=== PATIENT | male | born 2000 | race Caucasian/White ===

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

== ENCOUNTER 2018-03-18 13:32 | Emergency (ER) | payer BC ==
[2018-03-18] MEDS: 0.9 % SODIUM CHLORIDE 1,000 ML BAG IV ONE ×2 (14:15→15:04)
[2018-03-18 14:24] LABS: HEMOGLOBIN 16.4 gm/dl (14.0-18.0); MEAN CELL VOLUME 85.8 fl (81-97); MEAN CORPUSCULAR HEMOGLOBIN 29.9 pg (27-33); MEAN CORPUSCULAR HGB CONC 34.9 g/dl (32-36); PLATELET COUNT 111 K/uL (130-400); RED BLOOD COUNT 5.48 M/uL (4.40-5.70); WHITE BLOOD COUNT W/O DIFF 14.1 K/uL (4.2-12.2)
--- NOTE | 2018-03-18 14:26 | Emergency Department Record ---
History of Present Illness - General Chief complaint: Vomiting Stated complaint: DEHYDRATED Time Seen by Provider: 03/18/18 14:09 Source: Patient, Family Mode of Arrival: Ambulatory Limitations: No limitations - History of Present Illness Initial comments: The patient is here due to a one day hx of weakness, lightheaded with standing and intermittent nausea with vomiting. He has been working outside in the extreme heat and thinks he has heat exhaustion. The patient denies any AP, OTTO, trauma or injury. MD complaint: Nausea, Vomiting Onset/Timin -: Days(s) Description of Vomiting: Watery Associated Abdominal Pain: Yes Location: Diffuse Severity: Mild Quality: Aching Consistency: Intermittent Improves with: None Worsens with: None Associated Symptoms: Nausea/vomiting - Related Data Home Medications Medication Instructions Recorded Confirmed Last Taken No Home Med [NO HOME MEDS] 03/18/18 03/18/18 Unknown Allergies Allergy/AdvReac Type Severity Reaction Status Date / Time sulfamethoxazole Allergy RASH Verified 03/18/18 14:00 [From Bactrim] trimethoprim [From Bactrim] Allergy RASH Verified 03/18/18 14:00 Travel Screening - Travel/Exposure Within Last 30 Days Have you traveled within the last 30 days?: No Review of Systems Constitutional: Denies: Chills, Fever Eyes: Denies: Eye discharge ENT: Denies: Congestion Respiratory: Denies: Cough, Dyspnea Past Medical History - SOCIAL HISTORY Smoking Status: Current every day smoker Alcohol Use: Occasional Drug Use: Heavy - RESPIRATORY Hx Respiratory Disorders: Yes Hx Pneumonia: Yes - CARDIOVASCULAR Hx Cardio Disorders: No - NEURO Hx Neuro Disorders: No - GI Hx GI Disorders: No - Hx Genitourinary Disorders: No - ENDOCRINE Hx Endocrine Disorders: No - MUSCULOSKELETAL Hx Musculoskeletal Disorders: No - PSYCH Hx Psych Problems: No - HEMATOLOGY/ONCOLOGY Hx Hematology/Oncology Disorders: No Family Medical History Any Significant Family History?: No Physical Exam - General General Appearance: Alert, Oriented x3, Cooperative, No acute distress - Head Head exam: Atraumatic, Normocephalic, Normal inspection - Eye Eye exam: Normal appearance, PERRL - ENT Throat exam: Normal inspection. negative: Tonsillar erythema, Tonsillar exudate - Neck Neck exam: Normal inspection, Full ROM. negative: Tenderness - Respiratory Respiratory exam: Normal lung sounds bilaterally. negative: Respiratory distress - Cardiovascular Cardiovascular Exam: Regular rate, Normal rhythm, Normal heart sounds - GI/Abdominal GI/Abdominal exam: Soft, Normal bowel sounds. negative: Rebound, Rigid, Tenderness - Extremities Extremities exam: Normal inspection, Full ROM, Normal capillary refill. negative: Tenderness - Neurological Neurological exam: Alert, Normal gait. negative: Abnormal gait, Motor sensory deficit Course Vital Signs 03/18/18 13:58 Temperature 97.3 F L Pulse Rate 93 H Respiratory 20 Rate Blood Pressure 105/47 Pulse Ox 100 - Reevaluation(s) Reevaluation #1: The patient is doing a lot better at this time. He is resting comfortably. 03/18/18 15:10 Reevaluation #2: The patient is doing a lot better at this time. He is up walking and taking in fluids with no problems. I did discuss the plan for home and the need for return if the symptoms worsen. 03/18/18 16:41 Medical Decision Making - Data Complexity MDM Data: Labs Ordered and/or Reviewed - Lab Data Result diagrams: 03/18/18 14:05 03/18/18 14:05 Disposition Disposition: Discharge Clinical Impression: Dehydration after exertion Disposition: Home, Self-Care Condition: (2) Stable Instructions: Dehydration (ED) Additional Instructions: Please take today and tomorrow off work. Please drink plenty of fluids. Return to the ER for any worsening symptoms, pain, dizziness or vomiting. Forms: Patient Portal Access Time of Disposition: 16:40 Quality - Quality Measures Quality Measures: N/A - Blood Pressure Screening View Details: Yes Does Patient Have Any of the Following: No Blood Pressure Classification: Normal BP Reading Systolic Measurement: 105 Diastolic Measurement: 47 Screening for High Blood Pressure: < Normal BP, F/U Not Required > [G8783]
[2018-03-18 14:32] LABS: BLOOD UREA NITROGEN 13 mg/dL (6-20); CREATININE 0.8 mg/dL (0.7-1.2)
[2018-03-18 14:33] LABS: TOTAL PROTEIN 7.2 g/dL (6.6-8.7)
[2018-03-18 14:35] LABS: GLUCOSE,RANDOM 142 mg/dL (74-109)
[2018-03-18 14:36] LABS: PLATELET ESTIMATE NORMAL (NORMAL)
[2018-03-18 14:37] LABS: ALT/SGPT 33 U/L (<41); BILIRUBIN,DIRECT 0.2 mg/dL (0-0.3)
[2018-03-18 14:38] LABS: ALBUMIN 4.8 g/dL (4.0-5.0); ALKALINE PHOSPHATASE 67 U/L (40-129); AST/SGOT 22 U/L (10.0-50.0)
[2018-03-18] MEDS: ONDANSETRON HCL IV 4 MG/2 ML VIAL IVP ONE (15:03)
[2018-03-18 16:18] LABS: URINE APPEARANCE CLEAR; URINE BILIRUBIN NEGATIVE (NEGATIVE); URINE BLOOD NEGATIVE (NEGATIVE); URINE COLOR YELLOW; URINE GLUCOSE (UA) NEGATIVE (NEGATIVE); URINE KETONE TRACE (NEGATIVE); URINE LEUKOCYTE ESTERASE NEGATIVE (NEGATIVE); URINE NITRITE NEGATIVE (NEGATIVE); URINE PROTEIN NEGATIVE (NEGATIVE); URINE UROBILINOGEN 0.2 E.U./dL (0.20 - 1.00)
[2018-03-18 16:27] LABS: AMPHETAMINE SCREEN URINE NOT DETECTED; BARBITURATE SCREEN URINE NOT DETECTED; BENZODIAZEPINE SCREEN URINE NOT DETECTED; COCAINE SCREEN URINE NOT DETECTED; METHADONE SCREEN URINE NOT DETECTED; METHAMPHETAMINE SCREEN NOT DETECTED; OPIATE SCREEN URINE NOT DETECTED; OXYCODONE SCREEN URINE NOT DETECTED; PHENCYCLIDINE SCREEN URINE NOT DETECTED; PROPOXYPHENE SCREEN URINE NOT DETECTED; THC SCREEN URINE DETECTED; TRICYCLIC ANTIDEPRESSANT SCRN NOT DETECTED
== END 2018-03-18 16:49 | disposition home or self-care (01) ==
LOC: ER 13:32
DX: E86.0 Dehydration (principal); Z72.0 Tobacco use
CPT/HCPCS: 80048; 80076; 80305; 81003; 85027; 96360; 96361; 99284; J2405; J7030